=== PATIENT | male | born 1960 | race Caucasian/White ===

== ENCOUNTER 2018-01-01 07:13 | Emergency (ER) | payer OTHER ==
[2018-01-01 07:30] VITALS: BP 162/87
[2018-01-01] MEDS ORDERED: Tetan/Diph/Pertus SYR(Tdap)* 0.5 ML SYR(BOOSTRIX) use SYR IM ONE ×2 (07:39→07:40)
--- NOTE | 2018-01-01 07:58 | UC ---
Skin Complaint HPI - HPI Summary HPI Summary: PATIENT WAS DOING SOME WORK ON HIS HOUSE SEVERAL DAYS AGO WHEN HE GOT CAUGHT ON A DORA NAIL AND SUSTAINED A SCRATCH AND PUNCTURE WOUND TO HIS RIGHT HAND. HAS BEEN BANDAGING AND KEEPING THE WOUNDS CLEAN AND THEY ARE HEALING WELL. IS HERE REQUESTING A TDAP BOOSTER. - History of Current Complaint Chief Complaint: UCWounds Time Seen by Provider: 01/01/18 07:35 Stated Complaint: PUNCTURE WOUND TO FINGER Hx Obtained From: Patient Onset/Duration: Sudden Onset Timing: Constant Onset Severity: Mild Current Severity: None Pain Intensity: 0 Pain Scale Used: 0-10 Numeric Aggravating Factor(s): Nothing Alleviating Factor(s): Nothing - Allergy/Home Medications Allergies/Adverse Reactions: Allergies Allergy/AdvReac Type Severity Reaction Status Date / Time No Known Allergies Allergy Verified 01/01/18 07:25 Review of Systems Constitutional: Negative Skin: Other - PUNCTURE WOUND, ABRASION Respiratory: Negative Cardiovascular: Negative Gastrointestinal: Negative All Other Systems Reviewed And Are Negative: Yes PMH/Surg Hx/FS Hx/Imm Hx Previously Healthy: Yes - Surgical History Surgical History: Yes Surgery Procedure, Year, and Place: LEFT CARPAL TUNNEL RELEASE-1974. 2014 LEFT WRIST GANGLION CYST EXCISION, [facility]. DENTAL IMPLANTS - Family History Known Family History: Negative: Hypertension - Social History Alcohol Use: Weekly Alcohol Amount: 2-3 TIMES A WEEK Substance Use Type: None Smoking Status (MU): Never Smoked Tobacco - Immunization History Most Recent Tetanus Shot: needs one Physical Exam Triage Information Reviewed: Yes Appearance: Well-Appearing, No Pain Distress, Well-Nourished Vital Signs: Initial Vital Signs Temp 97.8 F 01/01/18 07:25 Pulse 63 01/01/18 07:25 Resp 16 01/01/18 07:25 BP 162/87 01/01/18 07:25 Pulse Ox 98 01/01/18 07:25 Vital Signs Reviewed: Yes Eyes: Positive: Conjunctiva Clear ENT: Positive: Hearing grossly normal Neck: Positive: Supple Respiratory: Positive: No respiratory distress, No accessory muscle use Cardiovascular: Positive: Pulses Normal Abdomen Description: Positive: Soft Musculoskeletal: Positive: No Edema Neurological: Positive: Alert Psychological: Positive: Age Appropriate Behavior Skin: Positive: Other - SPFL ABRASION RIGHT PALM. PUNCTURE WOUND RIGHT INDEX FINGER VOLAR ASPECT. Course/Dx - Diagnoses Provider Diagnoses: 1. PUNCTURE WOUND. 2. TDAP BOOSTER Discharge - Sign-Out/Discharge Documenting (check all that apply): Patient Departure All imaging exams completed and their final reports reviewed: No Studies - Discharge Plan Condition: Stable Disposition: HOME Patient Education Materials: Puncture Wound (ED) Referrals: Adry Mendoza MD [Primary Care Provider] - Additional Instructions: CONTINUE WOUND CARE YOU HAVE BEEN DOING. SEEK FOLLOW-UP IF YOU DEVELOP SPREADING REDNESS OF THE SKIN, PURULENT DRAINAGE, FEVER, INCREASED PAIN OR ANY OTHER CONCERNING SYMPTOMS. TETANUS IMMUNIZATION GIVEN (TDAP): You have been given an immunization against tetanus. Please record this in your records. In general, a booster is needed only once every 10 years. The tetanus shot protects against tetanus or "lockjaw," which is a complication of certain wound infections (the tetanus shot cannot protect against the actual infection). The immunization site may become warm and red due to local reaction. If this occurs, apply warm compresses and take aspirin or ibuprofen to reduce inflammation and discomfort. Return for evaluation if the reaction becomes severe. YOUR BLOOD PRESSURE WAS ELEVATED TODAY (162/87). THIS MAY BE DUE TO YOUR ACUTE CONDITION. MONITOR AND FOLLOW-UP WITH YOUR PCP WITHIN 4 WEEKS IF IT HAS NOT RETURNED TO NORMAL. - Billing Disposition and Condition Condition: STABLE Disposition: Home
== END 2018-01-01 07:50 | disposition home or self-care (01) ==
LOC: UCEAST 07:13
DX: S61.230A Puncture wound without foreign body of right index finger without damage to nail, initial encounter (principal); S60.511A Abrasion of right hand, initial encounter; W45.0XXA Nail entering through skin, initial encounter; Y93.H3 Activity, building and construction; Y92.009 Unspecified place in unspecified non-institutional (private) residence as the place of occurrence of the external cause; Z23 Encounter for immunization
CPT/HCPCS: 90715; 99211; G0463